=== PATIENT | male | born 1970 | race Caucasian/White ===

== ENCOUNTER → 2017-07-08 | Day surgery (SDC) | payer BC ==
[2017-07-07 12:37] VITALS: BMI 31.8
[~2017-07-08] MED LIST: Diprivan 20 ML ONE; Diprivan 40 ML ONE; Propofol 200 MG/20 ML VIAL ONE
[2017-07-08 10:33] LABS: #Eosinphils 0.1 thou/uL (0.0-0.7); #Lymphocytes 1.3 thou/uL (1.20-3.40); #Monocytes 0.7 thou/uL (0.11-0.59); #Neutrophils 3.3 thou/uL (1.40-6.50); %Basophils 0.3 % (0.0-1.0); %Eosinophils 1.3 % (0.0-10.0); %Lymphocytes 23.9 % (21.0-51.0); %Monocytes 12.5 % (0.0-10.0); Hematocrit 42.9 % (42.0-52.0); Mean Platelet Volume 9.3 fL (7.4-10.4); Red Blood Cell (RBC) Count 4.83 mill/uL (4.70-6.10); White Blood Cell (WBC) Count 5.4 thou/uL (4.8-10.8)
[2017-07-08 10:37] LABS: PTT 39.7 SEC (22.9-36.1); Prothrombin Time 17.7 SEC (12.0-14.7)
[2017-07-08 10:57] LABS: Anion Gap 13 mmol/L (10-20); BUN (Urea Nitrogen) 15 mg/dL (8.9-20.6); Calc. Creatinine Clearance 183 mL/min (70-130); Calcium 9.3 mg/dL (7.8-10.44); Carbon Dioxide 24 mmol/L (22-29); Chloride 106 mmol/L (98-107); Estimated GFR-MDRD Greater than 90
--- NOTE | 2017-07-08 15:02 | ECHO ---
TRANSESOPHAGEAL ECHOCARDIOGRAM: REFERRING PHYSICIAN: Dr. Muller. HISTORY: is a 47-year-old man with prior history of paroxysmal atrial fibrillation, status post repeated left atrial ablation procedures including left atrial appendage isolation as well performed postop. He is here to evaluate his left appendage mechanical function, hence he wishes to come off oral anticoagulation , hence maintaining sinus rhythm. PROCEDURE: The patient received deep sedation per Anesthesia specialist. After adequate level of sedation achieved, the standard transesophageal echocardiogram probe was passed into the esophagus without major difficulty. The patient tolerated procedure well, no complications noted. RESULTS: 1. The left atrium appears to be mildly dilated post. The left appendage is well visualized and contains no clots. It is a large structure. The left appendage velocities thought are reduced between 25-30 cm per second. 2. Four pulmonary veins were visualized. No pulmonary venous stenosis is seen postop. 3. Mitral valve has fair to mild regurgitation. The left ventricular function appears to be in normal range. Wall thickness and size is also normal. Right- size chamber is nondilated. No significant tricuspid regurgitation noted. The aortic valve has 3 leaflets without regurgitation or stenosis. Pulmonic valve is borderline visualized and appears to be normal. Pericardial space with trivial fusion only. The interatrial septum is free of defect. The visualized portion of the ascending and descending aortic aneurysm dilation, no dissection or significant atheroma note either postop. CONCLUSION: 1. No intracardiac clots detected. 2. Mild to moderately reduced left atrial appendage velocities at 25-30 cm per second are visualized. 3. Enlarged left atrial appendage is seen. 4. Mild left atrial enlargement. 5. Mild mitral regurgitation. 6. Normal left ventricular systolic function is seen. PLAN: We will review the images, but will likely continue oral anticoagulation for now. POS: CARLOS SANTILLAN
== END ==
LOC: CCL 08:58
PROVIDERS: ATTEND Internal Medicine Cardiovascular Disease
DX: I48.0 Paroxysmal atrial fibrillation (principal); I34.0 Nonrheumatic mitral (valve) insufficiency; I51.7 Cardiomegaly; Z79.01 Long term (current) use of anticoagulants; Z79.899 Other long term (current) drug therapy; Z98.1 Arthrodesis status; Z98.890 Other specified postprocedural states
CPT/HCPCS: 80048; 85025; 85610; 85730; 93005; 93010; 93312; J2704

== ENCOUNTER → 2017-11-09 | Day surgery (SDC) | payer BC ==
[2017-11-08 15:20] VITALS: BMI 31.1
--- NOTE | 2017-11-09 14:44 | OP ---
DATE OF PROCEDURE: 11/09/2017 TRANSESOPHAGEAL ECHOCARDIOGRAM REASON FOR PROCEDURE: Mr. Hood is a 47-year-old male with history of persistent atrial fibrillation, status post left atrial appendage isolation and prior venous isolation procedures in the past, left atrial appendage velocities. He underwent a Watchman device placement by Dr. Lo on 2016. He is here to evaluate the device prior to coming off Xarelto. PROCEDURE: The patient received deep sedation by Anesthesia specialist. The standard transesophageal probe was passed into the esophagus without difficulty. The patient tolerated the procedure well, no complications noted. RESULTS: Left atrial moderately enlarged, about 5 cm in horizontal diameter. images were visualized with a Watchman device in the left atrial appendage. The device seating is deeper than the perceived ostium. There is a thin ridge noted between the appendage and the pulmonary veins. There is small 2 mm leak noted at the inferior aspect of the Watchman device. There was also a crevice noted superior and posterior to the device just under the Coumadin ridge. The pulmonary veins were visualized and the interrogation reveals no stenosis, velocities are about 50 cm per second. The interatrial septum is without defect. Right-sided chambers normal in size, left ventricle is normal in size, systolic function and wall thickness. The pericardial space has trivial fusion only posteriorly detected focally only. No tamponade physiology is seen. The ascending aorta and visualized portion of descending aorta is without aneurysm, dissection or atheroma, aortic valve 3 leaflet without regurgitation, stenosis, mild mitral and tricuspid regurgitation, mild pulmonic regurgitation noted only. CONCLUSION: 1. Watchman device with only small device leak noted with placement as discussed above. 2. Mild to moderate left atrial enlargement. 3. Mild mitral, tricuspid and pulmonic regurgitation, 4. Normal left ventricular systolic function noted. PLAN: Will review the CD with Dr. Lo who placed the Watchman device and will make decisions based on that about further plans. DOMENICOD
== END ==
LOC: CCL 10:18
PROVIDERS: ATTEND Internal Medicine Cardiovascular Disease
DX: I48.1 Persistent atrial fibrillation (principal); I08.1 Rheumatic disorders of both mitral and tricuspid valves
CPT/HCPCS: 93005; 93010; 93312; J2704

== ENCOUNTER 2018-10-31 09:54 | Day surgery (SDC) | payer BC ==
[2018-10-28 13:59] VITALS: BMI 31.8
[2018-10-31 10:42] LABS: #Eosinphils 0.1 thou/uL (0.0-0.7); #Lymphocytes 1.4 thou/uL (1.20-3.40); #Monocytes 0.5 thou/uL (0.11-0.59); #Neutrophils 3.3 thou/uL (1.40-6.50); %Basophils 0.9 % (0.0-1.0); %Eosinophils 1.5 % (0.0-10.0); %Lymphocytes 26.6 % (21.0-51.0); %Monocytes 9.6 % (0.0-10.0); %Neutrophils 61.5 % (42.0-75.0); Hemoglobin 15.4 g/dL (14.0-18.0); Mean Corpuscular HGB CONC 33.6 g/dL (32.0-36.0); Mean Corpuscular Hemoglobin 29.7 pg (27.0-31.0); Mean Corpuscular Volume 88.5 fL (78.0-98.0); Mean Platelet Volume 7.7 fL (7.4-10.4); Platelet Count 170 thou/uL (130-400); RBC Distribution Width 12.7 % (11.5-14.5); Red Blood Cell (RBC) Count 5.19 mill/uL (4.70-6.10); White Blood Cell (WBC) Count 5.3 thou/uL (4.8-10.8)
[2018-10-31 10:49] LABS: INR-International Normal Ratio 1.5; PTT 40.5 SEC (22.9-36.1); Prothrombin Time 18.4 SEC (12.0-14.7)
[2018-10-31 11:08] LABS: Anion Gap 12 mmol/L (10-20); BUN (Urea Nitrogen) 16 mg/dL (8.9-20.6); Calc. Creatinine Clearance 158 mL/min (70-130); Calcium 9.6 mg/dL (7.8-10.44); Carbon Dioxide 26 mmol/L (22-29); Chloride 105 mmol/L (98-107); Estimated GFR-MDRD 78; Glucose 97 mg/dL (70-105); Potassium 4.4 mmol/L (3.5-5.1); Sodium 139 mmol/L (136-145)
[2018-10-31] MEDS ORDERED: PROPOFOL 20 ML ONE ×2 (12:08)
[2018-10-31] MEDS ORDERED: PROPOFOL 0 ML ONE (12:53)
[2018-10-31] MEDS ORDERED: PROPOFOL 200 MG/20 ML VIAL ONE (15:46)
--- NOTE | 2018-10-31 18:33 | ECHO ---
CARDIOLOGY PROCEDURE NOTE: Date: 10/31/18 PROCEDURE: Transesophageal echocardiogram. REASON FOR PROCEDURE: Mr. Hood is a 48-year-old male with prior history of persistent atrial fibrillation. He had Watchman device closure on 09/04/17 due to persisting leak. A -------- closure was performed December 2017. He is here for evaluation of his Watchman device. PROCEDURE DETAILS: Patient was administered Propofol by anesthesia specialist. After adequate level of sedation was achi eved, the standard transesophageal echocardiogram probe was passed into the esophagus without difficu lty. The patient tolerated the procedure well. No complications were noted. RESULTS: Left atrium is mildly enlarged, 4.4 cm horizontal diameter. Left atrial appendage is visualized with a well-seated Watchman device in place. Adjacent to the Watchman device, by the ridge, there was stil l flow detected about 5 mm large diameter. There was also echolucent space noted behind the Watchman device. Four of four pulmonary veins well seen without stenosis. Intraatrial septum reveals trivial residual communication between left and right atrium, likely related to the transseptal procedure. Trace lexus l regurgitation seen only. Aortic valve with three leaflets, without regurgitation. Tricuspid valve n onoregurgitant. Pulmonic valve not well visualized. Pericardial space without effusion. Left ventricu lar systolic function with normal size and function. Right-sided chambers nondilated. Visualized port ion of ascending and descending aorta without aneurysm, dissection, or atheroma. CONCLUSIONS: 1. Residual leak detected adjacent to the Watchman device and proximal to the ridge of the superior left pulmonary vein. 2. Mild left atrial enlargement. 3. Normal left ventricular systolic function. 4. No significant valvular heart disease. PLAN: Continue anticoagulation and refer him back to Dr. Lo for evaluation.
== END 2018-10-31 14:35 | disposition home or self-care (01) ==
LOC: CCL 09:54
PROVIDERS: ATTEND Internal Medicine Cardiovascular Disease
PROC: B246ZZ4 Ultrasonography of Right and Left Heart, Transesophageal (ICD-10-PCS; principal; 2018-10-31)
DX: I48.1 Persistent atrial fibrillation (principal); Z79.01 Long term (current) use of anticoagulants; Z79.899 Other long term (current) drug therapy
CPT/HCPCS: 36415; 80048; 85025; 85610; 85730; 93005; 93010; 93312; J2704

== ENCOUNTER → 2019-03-06 | Day surgery (SDC) | payer BC ==
[2019-03-03 10:35] VITALS: BMI 31.1
[2019-03-06 09:40] LABS: #Eosinphils 0.2 thou/uL (0.0-0.7); #Lymphocytes 1.4 thou/uL (1.20-3.40); #Monocytes 0.6 thou/uL (0.11-0.59); #Neutrophils 3.1 thou/uL (1.40-6.50); %Basophils 0.6 % (0.0-1.0); %Eosinophils 4.5 % (0.0-10.0); %Lymphocytes 25.9 % (21.0-51.0); %Monocytes 10.9 % (0.0-10.0); %Neutrophils 58.2 % (42.0-75.0); Hemoglobin 14.3 g/dL (14.0-18.0); Mean Corpuscular HGB CONC 34.4 g/dL (32.0-36.0); Mean Corpuscular Hemoglobin 30.7 pg (27.0-31.0); Mean Corpuscular Volume 89.1 fL (78.0-98.0); Mean Platelet Volume 7.8 fL (7.4-10.4); Platelet Count 147 thou/uL (130-400); RBC Distribution Width 12.3 % (11.5-14.5); Red Blood Cell (RBC) Count 4.66 mill/uL (4.70-6.10); White Blood Cell (WBC) Count 5.4 thou/uL (4.8-10.8)
[2019-03-06 09:48] LABS: INR-International Normal Ratio 1.5; PTT 38.3 SEC (22.9-36.1); Prothrombin Time 18.1 SEC (12.0-14.7)
[2019-03-06 10:08] LABS: Anion Gap 13 mmol/L (10-20); BUN (Urea Nitrogen) 18 mg/dL (8.9-20.6); Calc. Creatinine Clearance 178 mL/min (70-130); Calcium 9.3 mg/dL (7.8-10.44); Carbon Dioxide 25 mmol/L (22-29); Chloride 107 mmol/L (98-107); Estimated GFR-MDRD Greater than 90; Glucose 105 mg/dL (70-105); Potassium 4.6 mmol/L (3.5-5.1); Sodium 140 mmol/L (136-145)
--- NOTE | 2019-03-07 20:40 | ECHO ---
DATE OF SERVICE: 03/06/19 REFERRING PHYSICIAN: Dr. Lo REASON FOR PROCEDURE: The patient is a 48-year-old man with prior history of left atrial appendage isolation during a left atrial ablation procedure for atrial fibrillation who underwent a Watchman device in 08/2017 due to r epeated leak adjacent to the device. Repeat choroid closure procedure was performed in 12/06/18. He is here for six weeks post device placement LANCE. PROCEDURE: The patient received Propofol by Anesthesia specialist. After adequate level of sedation achieved, a standard transesophageal echocardiogram probe was passed into the esophagus without difficulty. Pat ient tolerated the procedure well, no complications noted. RESULTS: Left atrium is normal in size about 4 cm in horizontal diameter. The left atrial appendage well visu alized with an appropriately seated Watchman device in place. Posterior Watchman device high clot bur den is seen and with Doppler interrogation, no flow detected adjacent to the device. Four out of four pulmonary veins were seen without stenosis. The interatrial septum is without defect . Left ventricular systolic function is preserved. Mild mitral regurgitation only seen. Aortic valve has three leaflets without regurgitation or stenosis. Tricuspid valve has trace regurgitation. The pu lmonary valve is not well visualized. Pericardial space without effusion. CONCLUSION: 1. Adequate placed Watchman device with appropriate closure of the left atrial appendage is demonstr ated. No evidence of leak adjacent the device is seen. 2. Preserved LV systolic function. 3. Trace to mild mitral regurgitation only. No other valve abnormalities. PLAN: Stop Xarelto and progress to aspirin.
== END ==
LOC: CCL 08:48
PROVIDERS: ATTEND Internal Medicine Cardiovascular Disease
PROC: B245ZZ4 Ultrasonography of Left Heart, Transesophageal (ICD-10-PCS; principal; 2019-03-06)
DX: Z45.09 Encounter for adjustment and management of other cardiac device (principal); I34.0 Nonrheumatic mitral (valve) insufficiency; Z79.01 Long term (current) use of anticoagulants; Z79.899 Other long term (current) drug therapy
CPT/HCPCS: 36415; 80048; 85025; 85610; 85730; 93005; 93010; 93312